=== PATIENT | male | born 1965 | race African-American/Black ===

== ENCOUNTER 2021-09-14 10:04 | Emergency (ER) | payer SELFPAY | END 2021-09-14 10:59 | disposition home or self-care (01) | LOC: MADERS 10:04 | DX: S83.92XA Sprain of unspecified site of left knee, initial encounter (principal); I10 Essential (primary) hypertension; F17.220 Nicotine dependence, chewing tobacco, uncomplicated; W17.2XXA Fall into hole, initial encounter; Z79.899 Other long term (current) drug therapy | CPT/HCPCS: 99283 ==

== ENCOUNTER 2022-12-12 06:26 | Emergency (ER) | payer OTHER ==
[2022-12-12] MEDS ORDERED: Sodium Chloride 0.9% 1,000 ML ONE (07:33)
[2022-12-12 07:37] LABS: Bilirubin Negative (Negative); Blood, Urine Negative (Negative); Clarity Clear (Clear); Glucose, Urine (Dipstick) Negative (Negative); Ketone, Urine Negative (Negative); Leukocyte Negative (Negative); Nitrite Negative (Negative); Protein, Urine (Dipstick) Negative (Neg-Trace); Urobilinogen 0.2 mg/dL (Less than 2); pH, Urine 5.5 (5.0-9.0)
[2022-12-12 07:40] LABS: Eosinophils 1 % (0-10); Hematocrit 40.1 % (42.0-52.0); Hemoglobin 13.7 g/dL (14.0-18.0); Lymphocytes 34 % (21-51); MDiff Complete? YES; Mean Corpuscular HGB CONC 34.1 g/dL (32.0-36.0); Mean Corpuscular Hemoglobin 32.8 pg (27.0-31.0); Mean Corpuscular Volume 96.2 fl (78.0-98.0); Mean Platelet Volume 6.6 fL (7.4-10.4); Monocytes 6 % (0-10); Neutrophil 59 % (42-75); Platelet Adequacy Comment Appears Adequate; Platelet Count 266 10x3/uL (130-400); RBC Distribution Width 12.1 % (11.5-14.5); Red Blood Cell (RBC) Count 4.17 mill/uL (4.70-6.10); White Blood Cell (WBC) Count 4.7 10x3/uL (4.8-10.8)
[2022-12-12 07:42] LABS: CAUTI Indications for Culture Dysuria,urgency,freq; RBC/HPF None Seen HPF (0-3); Squamous Epithelial 0-3 HPF (0-3); WBC/HPF 0-3 HPF (0-3)
[2022-12-12 07:43] LABS: Urine Culture Reflex No No
[2022-12-12 07:50] LABS: ALT (SGPT) 24 U/L (8-55); AST (SGOT) 25 U/L (5-34); Albumin 4.2 g/dL (3.5-5.0); Alkaline Phosphatase 71 U/L (40-110); Anion Gap 16 mmol/L (10-20); BUN (Urea Nitrogen) 12 mg/dL (8.4-25.7); Bilirubin, Total 0.4 mg/dL (0.2-1.2); Calc. Creatinine Clearance 0 mL/min (70-130); Calcium 9.5 mg/dL (7.8-10.44); Carbon Dioxide 22 mmol/L (22-29); Chloride 100 mmol/L (98-107); Estimated GFR 104; Globulin 3.6 g/dL (2.4-3.5); Glucose 94 mg/dL (70-105); Potassium 3.5 mmol/L (3.5-5.1); Protein, Total 7.8 g/dL (6.0-8.3); Sodium 134 mmol/L (136-145)
[2022-12-12] MEDS ORDERED: Iopamidol 370 76% 100 ML VIAL ONE (09:19)
== END 2022-12-12 08:25 | disposition home or self-care (01) ==
LOC: MADERS 06:26
DX: K42.9 Umbilical hernia without obstruction or gangrene (principal); K80.50 Calculus of bile duct without cholangitis or cholecystitis without obstruction; N20.0 Calculus of kidney; I10 Essential (primary) hypertension; K21.9 Gastro-esophageal reflux disease without esophagitis; Z20.822 Contact with and (suspected) exposure to COVID-19; Z79.899 Other long term (current) drug therapy
CPT/HCPCS: 74177; 80053; 81001; 85025; 87081; 87430; 87635; 87804; J7050; Q9967

== ENCOUNTER 2023-04-10 14:51 | Emergency (ER) | payer BC, OTHER ==
[2023-04-10 15:37] LABS: Anion Gap 16 mmol/L (10-20); BUN (Urea Nitrogen) 9 mg/dL (8.4-25.7); Calc. Creatinine Clearance 0 mL/min (70-130); Calcium 9.2 mg/dL (7.8-10.44); Carbon Dioxide 20 mmol/L (22-29); Chloride 97 mmol/L (98-107); Estimated GFR 103; Glucose 95 mg/dL (70-105); Potassium 3.4 mmol/L (3.5-5.1); Sodium 130 mmol/L (136-145)
== END 2023-04-10 16:04 | disposition home or self-care (01) ==
LOC: MADERS 14:51
DX: I10 Essential (primary) hypertension (principal); E87.6 Hypokalemia; E87.1 Hypo-osmolality and hyponatremia; E78.5 Hyperlipidemia, unspecified; Z79.899 Other long term (current) drug therapy
CPT/HCPCS: 36415; 80048; 99283

== ENCOUNTER 2023-09-30 17:51 | Emergency (ER) | payer BC ==
[2023-09-30] MEDS ORDERED: Calcium Chloride 1 GM/10 ML Abboject SYRINGE ONE (18:39)
[2023-09-30 18:46] LABS: Prothrombin Time 13.1 sec (12.0-14.7)
[2023-09-30 18:47] LABS: PTT 27.4 sec (22.9-36.1)
[2023-09-30 18:57] LABS: ALT (SGPT) 32 U/L (8-55); AST (SGOT) 35 U/L (5-34); Albumin 3.9 g/dL (3.5-5.0); Alkaline Phosphatase 66 U/L (40-110); Anion Gap 18 mmol/L (10-20); BUN (Urea Nitrogen) 21 mg/dL (8.4-25.7); Bilirubin, Total 0.5 mg/dL (0.2-1.2); Calc. Creatinine Clearance 0 mL/min (70-130); Calcium 9.4 mg/dL (7.8-10.44); Carbon Dioxide 16 mmol/L (22-29); Chloride 100 mmol/L (98-107); Estimated GFR 84; Glucose 92 mg/dL (70-105); Magnesium 2.4 mg/dL (1.6-2.6); Potassium 3.4 mmol/L (3.5-5.1); Protein, Total 7.9 g/dL (6.0-8.3); Sodium 131 mmol/L (136-145)
[2023-09-30 19:02] LABS: Band 4 % (5-11); Eosinophils 5 % (0-10); Hematocrit 38.6 % (42.0-52.0); Hemoglobin 12.8 g/dL (14.0-18.0); Lymphocytes 19 % (21-51); MDiff Complete? YES; Manual Diff?? YES; Mean Corpuscular HGB CONC 33.2 g/dL (32.0-36.0); Mean Corpuscular Hemoglobin 32.5 pg (27.0-31.0); Monocytes 4 % (0-10); Neutrophil 55 % (42-75); Platelet Count 257 10x3/uL (130-400); RBC Distribution Width 12.2 % (11.5-14.5); Reactive Lymphocytes 13 % (0-10); Red Blood Cell (RBC) Count 3.94 mill/uL (4.70-6.10); White Blood Cell (WBC) Count 5.5 10x3/uL (4.8-10.8)
[2023-09-30 19:03] LABS: Platelet Adequacy Comment Appears Adequate
[2023-09-30 19:07] LABS: Bilirubin Negative (Negative); Blood, Urine Negative (Negative); Glucose, Urine (Dipstick) Negative (Negative); Ketone, Urine Negative (Negative); Leukocyte Negative (Negative); Nitrite Negative (Negative); Protein, Urine (Dipstick) Negative (Neg-Trace); Urobilinogen 0.2 mg/dL (Less than 2); pH, Urine 5.5 (5.0-9.0)
[2023-09-30 19:09] LABS: Clarity Clear (Clear); Specific Gravity, Urine 1.006 (1.002-1.036)
[2023-09-30 19:13] LABS: Bacteria/HPF Rare-Few HPF (None Seen); CAUTI Indications for Culture Dysuria,urgency,freq; RBC/HPF None Seen HPF (0-3); Squamous Epithelial 0-3 HPF (0-3); Urine Culture Reflex No No; WBC/HPF 0-3 HPF (0-3)
== END 2023-09-30 19:19 | disposition home or self-care (01) ==
LOC: MADERS 17:51
DX: E87.1 Hypo-osmolality and hyponatremia (principal); E87.6 Hypokalemia; I10 Essential (primary) hypertension
CPT/HCPCS: 80053; 81001; 83735; 84443; 84484; 85025; 85610; 85730; 93005